=== PATIENT | female | born 1960 | race Caucasian/White ===

== ENCOUNTER 2020-12-12 09:33 | Outpatient (CLI) | payer MEDICARE, MEDICAID ==
[~2020-12-12 09:33] MED LIST: CYCL-394 PO; DULO20CA50 PO; HYDR1TAB PO; ZOF4T PO
== END 2020-12-12 23:59 | disposition home or self-care (01) ==
LOC: RAD 09:33
PROVIDERS: ATTEND Family Medicine
DX: T17.908A Unspecified foreign body in respiratory tract, part unspecified causing other injury, initial encounter (principal); X58.XXXA Exposure to other specified factors, initial encounter; Y93.89 Activity, other specified; Y92.89 Other specified places as the place of occurrence of the external cause; Y99.8 Other external cause status
CPT/HCPCS: 74220

== ENCOUNTER 2022-08-01 14:45 | Emergency (ER) | payer BC, MEDICAID ==
[~2022-08-01] VITALS: Ht 167.6 cm; Wt 52.3 kg
[2022-08-01 14:58] VITALS: BP 95/48
[2022-08-01] MEDS: ketorolac trometh. 30mg/ml inj. IM ONE ×2 (17:48)
== END 2022-08-01 18:09 | disposition home or self-care (01) ==
LOC: ER 14:46
DX: S20.212A Contusion of left front wall of thorax, initial encounter (principal); R07.81 Pleurodynia; F17.200 Nicotine dependence, unspecified, uncomplicated; Z79.899 Other long term (current) drug therapy; W19.XXXA Unspecified fall, initial encounter; Y93.89 Activity, other specified; Y92.89 Other specified places as the place of occurrence of the external cause; Y99.8 Other external cause status
CPT/HCPCS: 71046; 96372; 99283; J1885

== ENCOUNTER 2023-10-04 21:41 | Emergency (ER) | payer BC, MEDICAID ==
[~2023-10-04] VITALS: Ht 167.6 cm; Wt 47.2 kg
[2023-10-04] MEDS ORDERED: HYDROcodone/acetaminophen 5mg/325mg tablet PO ONE (22:00)
[2023-10-04] MEDS ORDERED: HYDR-3965 PO (22:04)
[2023-10-04 22:18] VITALS: BP 120/60; PULSE 70; RESP 18; TEMP 98.9; O2SAT 98
== END 2023-10-04 22:19 | disposition home or self-care (01) ==
LOC: ER 21:41
DX: S46.211A Strain of muscle, fascia and tendon of other parts of biceps, right arm, initial encounter (principal); X58.XXXA Exposure to other specified factors, initial encounter; Y93.89 Activity, other specified; Y92.89 Other specified places as the place of occurrence of the external cause; Y99.8 Other external cause status
CPT/HCPCS: 99283; A4565

== ENCOUNTER 2024-11-21 06:31 | Emergency (ER) | payer MEDICARE, MEDICAID ==
[~2024-11-21] VITALS: Ht 167.6 cm; Wt 56.8 kg
[2024-11-21 06:42] VITALS: TEMP 97.8
[2024-11-21] MEDS ORDERED: PROP20TA6 PO (07:11)
[2024-11-21] MEDS ORDERED: CYCL-1 PO (07:11)
[2024-11-21] MEDS ORDERED: METH-375 PO (07:11)
[2024-11-21 08:00] LABS: BASOPHILS % (AUTO) 0.8 % (0-1); EOSINOPHILS % (AUTO) 1.2 % (0-6); HEMATOCRIT 33.2 % (35.0-45.0); HEMOGLOBIN 11.3 g/dl (12.0-16.0); LYMPHOCYTES # (AUTO) 1.6 X10'3 (1.1-4.8); LYMPHOCYTES % (AUTO) 56.6 % (21-51); MEAN CORPUSCULAR HEMOGLOBIN 32.7 PG (27.0-31.0); MEAN CORPUSCULAR HGB CONC 34.1 g/dL (33.0-36.5); MEAN CORPUSCULAR VOLUME 95.6 FL (78-98); MONOCYTES # (AUTO) 0.4 X10'3 (0-0.9); MONOCYTES % (AUTO) 12.4 % (2-12); NEUTROPHILS # (AUTO) 0.8 X10'3 (1.8-7.7); PLATELET COUNT 184 X10'3 (140-440); RED BLOOD COUNT 3.47 X10'6 (4.20-5.60); RED CELL DISTRIBUTION WIDTH 11.9 % (11.5-14.5); WHITE BLOOD COUNT 2.9 X10'3 (4.5-11.0)
[2024-11-21] MEDS: diazepam 5mg tablet PO ONE (08:00)
[2024-11-21 08:21] LABS: ALANINE AMINOTRANSFERASE 44 U/L (12-78); ALBUMIN 3.1 G/DL (3.4-5.0); ALKALINE PHOSPHATASE 67 IU/L (46-116); ANION GAP 5 (8-16); ASPARTATE AMINO TRANSFERASE 20 U/L (10-37); BILIRUBIN,TOTAL 0.3 MG/DL (0.1-1.0); BLOOD UREA NITROGEN 19 MG/DL (7-18); BUN/CREATININE RATIO 22.9 (10.0-20.0); CALCIUM 8.7 MG/DL (8.5-10.1); CHLORIDE 107 MMOL/L (99-107); CREATININE 0.83 MG/DL (0.40-0.90); GLUCOSE 89 MG/DL (70-104); POTASSIUM 4.3 MMOL/L (3.5-5.1); SODIUM 140 MMOL/L (135-145); TOTAL CARBON DIOXIDE 27.8 MMOL/L (24-32); TOTAL PROTEIN 6.2 G/DL (6.4-8.2); eCRCL 63 ML/MIN; eGFR 70 ML/MIN
[2024-11-21 08:25] LABS: TOTAL CELLS COUNTED 100
[2024-11-21 08:26] LABS: PLATELET ESTIMATE NORMAL
[2024-11-21] MEDS ORDERED: iohexol 350MG/ML 100ml bottle IV ONE (09:34)
[2024-11-21] MEDS: HYDROmorphone 1 mg/ml syringe IV ONE (09:53)
[2024-11-21 12:33] VITALS: BP 100/80; PULSE 83; RESP 18; O2SAT 99
== END 2024-11-21 12:34 | disposition home or self-care (01) ==
LOC: ER 06:31
DX: R07.89 Other chest pain (principal)
CPT/HCPCS: 36415; 71045; 71275; 80053; 84484; 85007; 85025; 93005; 96374; 99285; J1171; Q9967